=== PATIENT | male | born 2000 | race Caucasian/White ===

== ENCOUNTER 2023-10-07 20:04 | Emergency (ER) | payer OTHER ==
[~2023-10-07] VITALS: Ht 172.7 cm; Wt 91.3 kg
[2023-10-07 20:20] VITALS: O2SAT 99
[2023-10-07] MEDS: ONDANSETRON 4MG ODT PO ONE (23:23)
[2023-10-07] MEDS: ACETAMINOPHEN 325MG TABLET PO ONE (23:23)
[2023-10-07] MEDS: IBUPROFEN 600MG TABLET PO ONE (23:23)
[2023-10-08 00:51] VITALS: BP 138/66; PULSE 59; RESP 17; TEMP 36.94740; O2SAT 97
[2023-10-08] MEDS ORDERED: IBUP-1525 MT (00:57)
[2023-10-08] MEDS ORDERED: TOPUD MT (00:57)
[2023-10-08] MEDS ORDERED: ONDA4TAB50 MT (00:57)
== END 2023-10-08 01:08 | disposition home or self-care (01) ==
LOC: ER 20:04
DX: B34.9 Viral infection, unspecified (principal); I10 Essential (primary) hypertension
CPT/HCPCS: 99284; Q0162

== ENCOUNTER 2025-01-09 17:42 | Emergency (ER) | payer OTHER ==
[~2025-01-09] VITALS: Ht 175.3 cm; Wt 85.0 kg
[~2025-01-09 17:42] MED LIST: IBUP-1525 MT; ONDA4TAB50 MT; TOPUD MT
[2025-01-09 17:47] VITALS: O2SAT 95
[2025-01-09 18:18] LABS: BASOPHILS % 0.7 % (0.0-2.0); EOSINOPHILS % 2.0 % (0.0-5.0); HEMATOCRIT. 48.1 % (42.0-52.0); HEMOGLOBIN. 16.2 g/dL (14.0-18.0); LYMPHOCYTES % 33.1 % (20.0-50.0); MONOCYTES % 8.0 % (2.0-8.0); NEUTROPHILS % 56.2 % (40.0-76.0); RED BLOOD CELL COUNT 5.41 mill/uL (4.7-6.1); RED CELL DISTRIBUTION WIDTH 13.6 % (11.6-14.6)
[2025-01-09 18:31] LABS: CREATININE 0.9 mg/dL (0.6-1.3); PROTEIN TOTAL 7.3 g/dL (6.0-8.3); UREA NITROGEN BLOOD 10 mg/dL (9-23)
[2025-01-09 18:33] LABS: ASPARTATE AMINOTRANSFERASE 39 IU/L (<34); BILIRUBIN DIRECT 0.1 mg/dL (<=3.0); BILIRUBIN TOTAL 0.5 mg/dL (0.1-1.0)
[2025-01-09 18:37] LABS: MEAN PLATELET VOLUME 8.1 fl (7.4-10.4); PLATELET 238 x1000/uL (130-400)
[2025-01-09] MEDS: METOCLOPRAMIDE HCL 10MG/2ML VIAL IV ONE (19:14)
[2025-01-09] MEDS: SODIUM CHLORIDE 0.9% 1,000 ML IV ONE (19:15)
[2025-01-09] MEDS: KETOROLAC 15MG/ML VIAL IV ONE (19:15)
[2025-01-09 20:57] VITALS: BP 129/67; PULSE 61; RESP 14; TEMP 36.7; O2SAT 95
== END 2025-01-09 21:00 | disposition home or self-care (01) ==
LOC: ER 17:42
DX: G43.909 Migraine, unspecified, not intractable, without status migrainosus (principal); Z79.899 Other long term (current) drug therapy
CPT/HCPCS: 80076; 80048; 83735; 85025; 36415; 70450; 93005; 96361; 96374; 96375; 99285; J1885; J2765; J7030; Z7610 ×3